=== PATIENT | female | born 1970 | race Caucasian/White ===

== ENCOUNTER → 2017-03-27 | Outpatient (CLI) | payer BC ==
[~2017-03-27] MED LIST: PRENTAB26 PO; SYN75 PO
--- NOTE | 2017-03-27 15:51 | MAMMOGRAPHY REPORT ---
BILATERAL DIGITAL SCREENING MAMMOGRAM TOMOSYNTHESIS WITH CAD: 03/27/2017 CLINICAL HISTORY: Routine screening. Patient has no complaints. TECHNIQUE: Breast tomosynthesis in addition to standard 2D mammography was performed. Current study was also evaluated with a Computer Aided Detection (CAD) system. COMPARISON: Comparison is made to exams dated: 03/19/2016 mammogram, 03/16/2015 ultrasound, 03/16/2015 mammogram, 09/29/2014 ultrasound, 09/29/2014 mammogram, and 03/25/2014 mammogram - [facility] nter. BREAST COMPOSITION: The tissue of both breasts is extremely dense, which lowers the sensitivity of m ammography. FINDINGS: There is a stable ribbon shaped metallic biopsy marker in the right upper outer quadrant. No new suspicious mass, architectural distortion or cluster of microcalcifications is seen. IMPRESSION: ACR BI-RADS CATEGORY 1: NEGATIVE There is no mammographic evidence of malignancy. A 1 year screening mammogram is recommended. The pa tient will receive written notification of the results. Approximately 10% of breast cancers are not detected with mammography. A negative mammographic report should not delay biopsy if a clinically suggestive mass is present. Lauryn Franco M.D. ay/:03/27/2017 15:24:26 Employee Service Officer: Ivana Barber, [facility] letter sent: Normal 1/2 BI-RADS Code: ACR BI-RADS Category 1: Negative
== END | disposition home or self-care (01) ==
LOC: C.MAMM 12:52
PROVIDERS: ATTEND Obstetrics & Gynecology
DX: Z12.31 Encounter for screening mammogram for malignant neoplasm of breast (principal)

== ENCOUNTER → 2017-06-12 | Outpatient (CLI) | payer BC | END | disposition home or self-care (01) | LOC: C.PAPS 15:01 | PROVIDERS: ATTEND Obstetrics & Gynecology | DX: Z01.419 Encounter for gynecological examination (general) (routine) without abnormal findings (principal) ==

== ENCOUNTER → 2018-04-16 | Outpatient (CLI) | payer OTHER ==
--- NOTE | 2018-04-17 07:54 | MAMMOGRAPHY REPORT ---
UNILATERAL RIGHT DIGITAL DIAGNOSTIC MAMMOGRAM TOMOSYNTHESIS AND TARGETED RIGHT ULTRASOUND: 04/16/2018 CLINICAL HISTORY: Callback from screening mammogram for possible right breast architectural distortio n. TECHNIQUE: The study was acquired using full field digital technology and interpreted from soft copy. Breast tomosynthesis in addition to standard 2D mammography was performed. Spot compression right C C and MLO 2D and tomosynthesis images were obtained. COMPARISON: Comparison is made to exams dated: 04/02/2018 mammogram, 03/27/2017 mammogram, 03/19/2016 ma mmogram, 03/16/2015 mammogram, 03/22/2014 mammogram, and 03/22/2014 ultrasound - [facility]. BREAST COMPOSITION: The tissue of right breast is extremely dense, which lowers the sensitivity of ma mmography. FINDINGS: Spot compression views demonstrate possible persistent subtle architectural distortion colten cent to the biopsy marker clip in the right upper outer quadrant, seen on the cc tomosynthesis images only. Targeted ultrasound was performed of the right breast in the region of the possible distortio n. In the right breast at approximately 11:00, 1 cm from the nipple, an echogenic biopsy marker clip is noted. Adjacent to the echogenic biopsy marker clip is an ill-defined hypoechoic region with pos sible associated architectural distortion seen during real-time imaging. The area is ill-defined and therefore difficult to measure but measures approximately 4 x 5 mm. The area does not appear signif icantly changed compared to prior ultrasound exams although there are technical differences which gayle e it difficult to make accurate comparison. While the distortion may represent postbiopsy change, th e finding is indeterminant. Recommend bilateral breast MRI for further evaluation. IMPRESSION: ACR BI-RADS CATEGORY 0: INCOMPLETE EVALUATION: NEED ADDITIONAL IMAGING EVALUATION, ULTRAS OUND ACR BI-RADS CATEGORY 0: INCOMPLETE EVALUATION: NEED ADDITIONAL IMAGING EVALUATION Possible subtle architectural distortion noted adjacent to the biopsy marker clip in the right 11:00 breast at the site of prior benign ultrasound-guided biopsy. While this could represent postbiopsy c hanges, the finding is indeterminate and contrast enhanced bilateral breast MRI is recommended for fu rther evaluation to exclude the possibility of abnormal enhancement in the region. The patient has been verbally notified of the results. Some breast cancers are not detected with mammography. A negative mammographic report should not ayanna y biopsy if a clinically suggestive mass is present. Negra Mcguire M.D. ah/:04/16/2018 12:51:43 Campus Safety Officer: RT Bess(R)(M), [facility]; Negra Mcguire MD, [facility] letter sent: Addl Imaging 0 OVERALL STUDY BIRADS: 0 Indeterminate
== END | disposition home or self-care (01) ==
LOC: C.MAMM 12:07
PROVIDERS: ATTEND Obstetrics & Gynecology
DX: R92.8 Other abnormal and inconclusive findings on diagnostic imaging of breast (principal)

== ENCOUNTER → 2018-04-22 | Outpatient (CLI) | payer OTHER ==
[~2018-04-22] MED LIST changes: +GADAVIST IV PRN
--- NOTE | 2018-04-23 14:57 | MAMMOGRAPHY REPORT ---
BREAST MRI OF BOTH BREASTS: 04/22/2018 CLINICAL HISTORY: 47-year-old woman called back from recent screening mammogram for a possible area o f architectural distortion in the right upper outer quadrant near a metallic biopsy marker clip. Ther e was possible persistent subtle distortion on the spot compression tomosynthesis images but no defin ite sonographic change or suspicious abnormality when comparing to prior ultrasounds. Patient present s for MRI to assess for any possible abnormal enhancement or enhancing mass in this area. Patient's b enign right breast biopsy was performed 03/25/2014. COMPARISON: Right breast diagnostic mammograms and ultrasound dated 04/16/2018, screening mammograms d ated 04/02/2018, 03/27/2017, diagnostic mammograms dated 03/19/2016, 03/16/2015, 09/29/2014, 03/25/2014, prior breast ultrasounds dated 03/16/2015, 09/29/2014, 03/22/2014, ultrasound core biopsy dated 03/25/2014. TECHNIQUE: Using a 1.5 Tran magnet and dedicated breast coil, multisequence axial images were obtain ed through the breasts. After uneventful IV administration of 4.5 mL of Gadavist, dynamic multiphase contrast-enhanced axial images, and sagittal postcontrast were obtained. Temporal subtraction axial images and 3-D MIP images are provided. Everything was then reviewed on a 3-D workstation, [employer]. FINDINGS: Right breast: There is minimal background parenchymal enhancement of the right breast. Small focus o f susceptibility artifact is identified in the upper outer middle one third of the right breast at ap proximately 10:0011:00, denoting the biopsy marker clip from prior benign ultrasound-guided core bio psy. There is no evidence of abnormal enhancement or enhancing mass in the right upper outer breast adjacent to the biopsy marker clip to correlate with the possible architectural distortion seen mammo graphically. This finding most likely represented a combination of normal parenchyma and postbiopsy change and is considered benign given lack of enhancement. Overall, there is no evidence of a suspic ious enhancing right breast mass, non-mass enhancement, or suspicious kinetics. No skin thickening o r nipple retraction. No suspicious right axillary lymphadenopathy. Left breast: There is minimal background parenchymal enhancement of the left breast. There is clumpe d non-mass enhancement in a segmental distribution within the approximate 11:00 axis of the left serafin st anterior through posterior one third of the breast. This clumped non-mass enhancement measures at least 5.6 cm in AP by 2.5 cm in craniocaudal by 1.3 cm in transverse dimension, has associated persi stent kinetics, and no significant associated T2 hyperintensity or cysts. This is the only conspicuo us abnormal enhancement in either breast and given the non-mass nature in a segmental distribution DC IS cannot be excluded. An MRI guided biopsy is therefore recommended, as second look ultrasound woul d likely be unyielding. No other enhancing mass, suspicious kinetics or architectural distortion naamaria ntified in the left breast. No skin thickening or nipple retraction. The retromammary fat is intact . No suspicious left axillary lymphadenopathy. IMPRESSION: ACR BI-RADS CATEGORY 4: SUSPICIOUS 1. There is clumped non-mass enhancement in a segmental distribution in the approximate 11:00 left b reast extending throughout the anterior, middle and posterior one third of the breast, for which an M RI guided biopsy is recommended to exclude the possibility of DCIS. 2. There is no abnormal enhancement or enhancing mass near the right breast biopsy marker clip in th e upper outer quadrant. The possible mammographic distortion most likely represented a combination o f normal overlapping tissue and postbiopsy change and is considered benign given the lack of enhancem ent. No further follow-up is needed at this time. 3. Overall no MRI evidence of malignancy in the right breast. 4. No suspicious axillary adenopathy bilaterally. Lauryn Franco M.D. ay/:04/22/2018 21:09:39 Motor Vehicle License Clerk: substation designer, [facility] letter sent: Abnormal 4/5 BI-RADS Code: ACR BI-RADS Category 4: Suspicious
== END | disposition home or self-care (01) ==
LOC: C.MRI 12:49
PROVIDERS: ATTEND Obstetrics & Gynecology
DX: N63.10 Unspecified lump in the right breast, unspecified quadrant (principal)

== ENCOUNTER → 2018-05-07 | Outpatient (CLI) | payer OTHER ==
[~2018-05-07] MED LIST changes: +LIDO/EPINEPHRINE/SOD BICARB 20 ML VIAL ONE; +LIDOCAINE 1% BUFFERED INJ 20 ML VIAL ONE
--- NOTE | 2018-05-07 10:30 | Discharge Instructions ---
Discharge Instructions Procedure Procedure Date: May 07, 2018. Reason for visit: Left Non-Mass Enhancement. Discharge Discharge Date: May 07, 2018. Discharge Diagnosis: status post breast biopsy Instructions Activity Recommendations: Additional Limitations (see below) Return to School/Work: no limitations Recommended Home Diet: No Limitations Provider Instructions: ACTIVITY RECOMMENDATIONS: * No lifting, pushing, pulling or exercising the affected side for three days. RETURN TO SCHOOL/WORK: * You may return to work/school after the procedure, but do not perform any strenuous activities for 24 to 48 hours. MEDICATIONS: * Tylenol (two 325 mg) every four to six hours if needed for mild pain (if not allergic to Tylenol). DIET: * Resume previous diet. SPECIAL CARE INSTRUCTIONS: * Keep biopsy site dry for 24 hours. May shower after 24 hours, but do not soak (bathe) incision. * May remove Tegaderm (plastic patch) 24 hours after procedure * Leave the steri-strips on for one week. Allow the steri-strips to fall off by themselves. If not off after one week, you may remove them. You may place a Bandaid crosswise over the strips, if desired. * Apply ice 10 minutes on and 10 minutes off as needed. * Wear a bra at bedtime to sleep more comfortably for 2-3 days. * Your referring physician should have the results after approximately 5 to 7 business days. * Call for unusual bleeding, fever, drainage, etc or if you have any questions call during normal business hours or after hours call Dr Mcguire, [phone]. FOLLOW UP VISIT: Follow-up with Referring Physician as scheduled. Allergies Coded Allergies: No Known Allergies (Verified , 01/09/12) Tu Mckenna Recommendations: Call your doctor if: * Temperature above 101 degrees * Pain not relieved by pain medicine ordered * There is increased drainage or redness from any incision * You have any unanswered questions or concerns. Your Doctors Instructions noted above were prepared by provider Negra Mcguire. Patient Signature Section: Patient Instructions Signature Page Alejandraronnie Mayojay Patient (or Guardian) Signature/Date: I have read and understand the instructions given to me by my caregivers. Caregiver/RN/Doctor Signature/Date: The above-named patient and/or guardian has received patient instructions on this date. + Original Patient Signature Page (only) stays with chart. Please make copy for patient.
--- NOTE | 2018-05-07 13:50 | MAMMOGRAPHY REPORT ---
MRI BIOPSY LEFT BREAST: 05/07/2018 CLINICAL HISTORY: Non-mass enhancement involving the left 11:00 breast on recent breast MRI. Post Bio psy. COMPARISON: Comparison is made to exams dated: 04/22/2018 breast MRI, 04/16/2018 ultrasound, 04/02/2018 mammogram, 03/27/2017 mammogram, 03/19/2016 mammogram, and 03/16/2015 ultrasound - [facility]. Technique: Written informed consent was obtained from the patient after discussion of the procedure a s well as risks of MRI guided core needle biopsy. A preprocedural timeout was performed prior to sta rting the procedure. The patient was placed prone on a 1.5 Tran MR scanner. The medial aspect of the left breast was tosha ansed with ChloraPrep. The left breast was positioned in a dedicated breast coil and MRI guidance gr id device. After localizing sequences were obtained, pre-and postcontrast axial sequences were performed which c onfirm the persistence of the non-mass enhancement in the left superior breast at approximately 11:00 to 12:00. 5 cc of Gadavist IV contrast was administered. Using the images, targeting was performed using the [employer] software. The skin was prepped with Betadine through the grid and after local anesthesia was achieved, an intro ducer sheath and localizing obturator were placed into the site using a medial approach. The locatio n of the obturator sheath was confirmed with additional images. Subsequently, multiple samples were obtained from the site using a 3DLT.comos 9-gauge vacuum-assisted core biopsy device. Through the introducer sheath, a marker clip was placed. Postprocedural images demo nstrate expected postbiopsy changes in the location of the targeted non-mass enhancement. Direct pre ssure was held at the biopsy site until hemostasis was achieved. The patient tolerated the procedure without immediate complication. Mammography was obtained at the breast center after completion of the biopsy to confirm marker clip placement. Postprocedure left CC and ML tomosynthesis images were obtained, which shows a new dumbbell-shaped biopsy marker clip in t he expected location of the biopsy non-mass enhancement in the left superior breast at approximately 12:00. A small oval 17 mm mass is seen at the biopsy site, which likely represents a small postbiops y hematoma. The specimens were sent to pathology for analysis. Wound care instructions were given t o the patient. IMPRESSION: MRI BIOPSY MRI guided core needle biopsy of the non-mass enhancement in the left superior breast at approximatel y 11:00, with clip placement. The patient will receive pathology results from her referring provider . Negra Mcguire M.D. ah/:05/07/2018 11:20:56 Chief Engineer'S Helper: battery inspector, [facility]; Akilah Coppola RT(R)(M), [facility]
== END | disposition home or self-care (01) ==
LOC: C.MRI 09:17
PROVIDERS: ATTEND Obstetrics & Gynecology
DX: N60.92 Unspecified benign mammary dysplasia of left breast (principal)